=== PATIENT | male | born 1945 | race Caucasian/White ===

== ENCOUNTER 2019-05-25 08:14 | Inpatient (IN) | payer MEDICARE, MEDICAID ==
[~2019-05-25] VITALS: Ht 180.3 cm; Wt 80.0 kg
[~2019-05-25 08:14] MED LIST: ADV50250 IH; ALB0.5UD IH; ALPR-624 PO; ASPI-1265 PO; CARCD120C PO; CHOL200035 PO; CLOP75TA35 PO; COL100C PO; CYAN500T63 PO; DIPH-423 PO; FERR325T28 PO; FISH OIL DR 1,1 EACH PO; KEN0.1O TP; LATA2.5D6 OP; LEVO500T2 PO; LISI-222 PO; METF500T PO; NITR0.4T51 SL; PANT40TA39 PO; ROSU40TA PO; TIOT18CA7 IH; TRAM50TA2 PO
[2019-05-25] MEDS ORDERED: methylPREDNISolone sod succ 125mg/2ml vial IV ONE (08:25)
[2019-05-25] MEDS ORDERED: ipratropium/albuterol 3ml nebule NEB ONE (08:25)
[2019-05-25 08:54] LABS: PARTIAL THROMBOPLASTIN TIME 24 SECONDS (22-32)
[2019-05-25 09:09] LABS: ALANINE AMINOTRANSFERASE 17 U/L (12-78); ALBUMIN 3.4 G/DL (3.4-5.0); ALBUMIN/GLOBULIN RATIO 0.8 (1.1-1.5); ALKALINE PHOSPHATASE 62 IU/L (46-116); ANION GAP 9 (8-16); ASPARTATE AMINO TRANSFERASE 16 U/L (10-37); BILIRUBIN,TOTAL 0.4 MG/DL (0.1-1.0); BLOOD UREA NITROGEN 25 MG/DL (7-18); BUN/CREATININE RATIO 20.5 (5.4-32.0); CALCIUM 10.7 MG/DL (8.5-10.1); CHLORIDE 97 MMOL/L (99-107); CREATININE 1.22 MG/DL (0.60-1.10); GLUCOSE 120 MG/DL (70-104); POTASSIUM 4.7 MMOL/L (3.5-5.1); SODIUM 135 MMOL/L (135-145); TOTAL CARBON DIOXIDE 28.9 MMOL/L (24-32); TOTAL PROTEIN 7.9 G/DL (6.4-8.2); eGFR 58 ML/MIN
[2019-05-25] MEDS ORDERED: aspirin 81mg tab.chew PO ONE (09:15)
[2019-05-25 10:29] LABS: BASOPHILS % (AUTO) 0.3 % (0-1); EOSINOPHILS # (AUTO) 0.3 X10'3 (0-0.9); EOSINOPHILS % (AUTO) 2.2 % (0-6); HEMATOCRIT 39.7 % (42.0-52.0); HEMOGLOBIN 13.1 g/dl (14.0-17.9); LYMPHOCYTES # (AUTO) 0.6 X10'3 (1.1-4.8); MEAN CORPUSCULAR HEMOGLOBIN 28.6 PG (27.0-31.0); MEAN CORPUSCULAR VOLUME 86.7 FL (78-98); MEAN PLATELET VOLUME 8.8 FL (7.4-10.4); MONOCYTES # (AUTO) 0.7 X10'3 (0-0.9); MONOCYTES % (AUTO) 5.4 % (2-12); NEUTROPHILS # (AUTO) 10.4 X10'3 (1.8-7.7); NEUTROPHILS % (AUTO) 87.1 % (42-75); PLATELET COUNT 178 X10'3 (140-440); RED BLOOD COUNT 4.58 X10'6 (4.70-6.10); RED CELL DISTRIBUTION WIDTH 14.9 % (11.5-14.5)
[2019-05-25] MEDS ORDERED: ALBU18HF2 INH (10:50)
[2019-05-25] MEDS ORDERED: ALB0.5UD IH (10:54)
[2019-05-25] MEDS ORDERED: iohexol 300mg/ml 100ml inj. ONE (10:54)
--- NOTE | 2019-05-25 10:59 | NUR ---
pt out to ct via wheelchair with final inspector shuttle
[2019-05-25 11:01] LABS: ABG BASE EXCESS 0.1 mmol/L (-2.0-3.0); ABG OXYGEN SATURATION 93.5 % (95-98); ABG PCO2 (T) 41.6 mmHg (35.0-45.0); ABG PH (T) 7.397 (7.350-7.450); ALLEN'S TEST Positive; FCOHb 1.2 % (0.5-1.5); FLOW 2 L/min; FMetHb 0.2 % (0.3-1.12); FO2Hb 92.2 % (94-100); RESPIRATORY RATE (OBSERVED) 17 b/min; TOTAL HEMOGLOBIN 14.7 G/dl (14.0-17.9)
[2019-05-25] MEDS: MESSAGE TO NURSING PO NR (12:06)
--- NOTE | 2019-05-25 13:10 | NUR ---
SPOKE WITH DR ELIAS ABOUT POC FOR PT. STATED NOT SURE IF PT WILL BE ADMITTED AT THIS TIME AND WILL SPEAK TO PT. PT SLEEPING IN BED NO DISTRESS NOTED.
[2019-05-25] MEDS ORDERED: ADV50500 IH (13:58)
--- NOTE | 2019-05-25 13:59 | NUR ---
MEDICAL RECORDS RELEASE FAXED TO THE [facility]
[2019-05-25] MEDS ORDERED: FLO0.4C PO (14:04)
[2019-05-25] MEDS ORDERED: MEGE40TA27 PO (14:04)
[2019-05-25] MEDS ORDERED: [UNRECOGNIZED DRUG - CODE] TP (14:09)
[2019-05-25] MEDS ORDERED: BRIN8DRO LEFTEYE (15:35)
[2019-05-25] MEDS ORDERED: CHOL100046 PO (16:00)
[2019-05-25] MEDS ORDERED: SILD100T PO (16:06)
[2019-05-25] MEDS ORDERED: TEMA15CA5 PO (16:06)
[2019-05-25] MEDS ORDERED: PANT-47 PO (16:06)
[2019-05-25] MEDS ORDERED: DILT-36 PO (16:06)
[2019-05-25] MEDS ORDERED: enoxaparin 80mg/0.8ml syringe SUBCUT ONE (17:30)
[2019-05-25] MEDS ORDERED: enoxaparin 100mg/ml syringe SUBCUT ONE (17:30)
[2019-05-25] MEDS ORDERED: levoFLOXACIN-Levaquin 750MG/D5 150 ML IV STA (17:45)
[2019-05-25] MEDS ORDERED: magnesium Cl slow-release 64mg tablet PO PRN (17:55)
[2019-05-25] MEDS ORDERED: ondansetron/PF 4mg/2ml inj IV PRN (17:55)
[2019-05-25] MEDS ORDERED: magnesium 2GM in 50ml NS 50 ML IV PRN (17:55)
[2019-05-25] MEDS ORDERED: ipratropium/albuterol 3ml nebule NEB PRN (17:55)
[2019-05-25] MEDS ORDERED: HYDROcodone/acetaminophen 10/325mg tab PO PRN (17:55)
[2019-05-25] MEDS ORDERED: acetaminophen 325mg tablet PO PRN ×2 (17:55)
[2019-05-25] MEDS ORDERED: potassium Cl 20 mEq SR tablet PO PRN ×2 (17:55)
[2019-05-25] MEDS ORDERED: HYDROcodone/acetaminophen 5mg/325mg tablet PO PRN (17:55)
[2019-05-25] MEDS ORDERED: potassium CL 10mEq/100ml bag 100 ML IV PRN ×2 (17:55)
[2019-05-25] MEDS ORDERED: magnesium hydroxide 30ml (MOM) UD suspension PO PRN (17:55)
[2019-05-25] MEDS ORDERED: magnesium 4gm in 100ml NS 100 ML IV PRN (17:55)
[2019-05-25] MEDS ORDERED: temazepam 15mg capsule PO PRN ×2 (18:00→21:00)
[2019-05-25] MEDS ORDERED: dextrose ORAL solution 15 GM/59 ML bottle PO PRN ×2 (18:05)
[2019-05-25] MEDS ORDERED: MESSAGE TO PHARMACY PO ONE (18:05)
[2019-05-25] MEDS ORDERED: glucagon, human recombinant 1mg kit SUBCUT PRN (18:05)
[2019-05-25] MEDS ORDERED: dextrose 50%-water 50ml dispensing syringe IV PRN ×2 (18:05)
--- NOTE | 2019-05-25 18:06 | NUR ---
brother jose [phone]
[2019-05-25] MEDS: normal saline 1000ml 1,000 ML IV SCH (18:10)
[2019-05-25] MEDS: insulin glargine (Lantus) pen - multi-dose SQ SCH (21:00)
[2019-05-25] MEDS ORDERED: BRIMONID TART EACHEYE SCH (21:00)
[2019-05-25] MEDS ORDERED: BRINZOLAMIDE EACHEYE SCH (21:00)
[2019-05-25] MEDS: ipratropium/albuterol 3ml nebule NEB SCH ×2 (21:16→23:00)
[2019-05-25] MEDS: OPTH EACHEYE SCH (21:43)
[2019-05-25] MEDS: SIMBRINZA EACHEYE SCH (21:43)
[2019-05-25] MEDS: LATANOPROST EYE DROPS LEFTEYE SCH (21:44)
[2019-05-25] MEDS: methylPREDNISolone sod succ 125mg/2ml vial IV SCH (21:46)
[2019-05-26] MEDS: methylPREDNISolone sod succ 125mg/2ml vial IV SCH ×4 (02:11→20:23)
[2019-05-26] MEDS: normal saline 1000ml 1,000 ML IV SCH (05:19)
[2019-05-26 05:58] LABS: BASOPHILS % (AUTO) 0 % (0-1); EOSINOPHILS % (AUTO) 0 % (0-6); HEMATOCRIT 36.6 % (42.0-52.0); HEMOGLOBIN 12.2 g/dl (14.0-17.9); LYMPHOCYTES # (AUTO) 0.4 X10'3 (1.1-4.8); LYMPHOCYTES % (AUTO) 4.4 % (21-51); MEAN CORPUSCULAR HEMOGLOBIN 28.8 PG (27.0-31.0); MEAN CORPUSCULAR HGB CONC 33.4 g/dL (33.0-36.5); MEAN CORPUSCULAR VOLUME 86.3 FL (78-98); MEAN PLATELET VOLUME 8.7 FL (7.4-10.4); MONOCYTES # (AUTO) 0.3 X10'3 (0-0.9); MONOCYTES % (AUTO) 2.7 % (2-12); NEUTROPHILS # (AUTO) 9.1 X10'3 (1.8-7.7); NEUTROPHILS % (AUTO) 92.9 % (42-75); PLATELET COUNT 195 X10'3 (140-440); RED BLOOD COUNT 4.24 X10'6 (4.70-6.10); RED CELL DISTRIBUTION WIDTH 14.5 % (11.5-14.5); WHITE BLOOD COUNT 9.8 X10'3 (4.5-11.0)
--- NOTE | 2019-05-26 06:12 | NUR ---
Patient in room NAS[facility] 357. I have received report from JENNIE Truong and had the opportunity to ask questions and assume patient care.
[2019-05-26 06:21] LABS: ALANINE AMINOTRANSFERASE 21 U/L (12-78); ALBUMIN 2.7 G/DL (3.4-5.0); ALBUMIN/GLOBULIN RATIO 0.7 (1.1-1.5); ALKALINE PHOSPHATASE 55 IU/L (46-116); ANION GAP 9 (8-16); ASPARTATE AMINO TRANSFERASE 15 U/L (10-37); BILIRUBIN,TOTAL 0.2 MG/DL (0.1-1.0); BLOOD UREA NITROGEN 31 MG/DL (7-18); BUN/CREATININE RATIO 31.3 (5.4-32.0); CHLORIDE 101 MMOL/L (99-107); CREATININE 0.99 MG/DL (0.60-1.10); GLUCOSE 179 MG/DL (70-104); MAGNESIUM 2.1 MG/DL (1.5-2.4); PHOSPHORUS 4.5 MG/DL (2.3-4.5); POTASSIUM 4.7 MMOL/L (3.5-5.1); SODIUM 137 MMOL/L (135-145); TOTAL CARBON DIOXIDE 27.3 MMOL/L (24-32); TOTAL PROTEIN 6.8 G/DL (6.4-8.2); eGFR 74 ML/MIN
--- NOTE | 2019-05-26 06:39 | NUR ---
Problems reprioritized. Patient report given, questions answered & plan of care reviewed with Ana SCHNEIDER.
[2019-05-26 07:18] VITALS: BP 107/56
[2019-05-26] MEDS: K and/or MAG REPLACEMENT MC SCH (07:44)
[2019-05-26] MEDS: OPTH EACHEYE SCH ×2 (07:44→13:00)
[2019-05-26] MEDS: SIMBRINZA EACHEYE SCH ×2 (07:44→13:00)
[2019-05-26] MEDS: diltiazem CD 180mg cap (once-daily) PO SCH (07:45)
[2019-05-26] MEDS: aspirin 81mg tab.chew PO SCH (07:45)
[2019-05-26] MEDS: docusate sod 100mg capsule PO SCH (07:45)
[2019-05-26] MEDS: tamsulosin 0.4mg capsule PO SCH (07:46)
[2019-05-26] MEDS: MESSAGE TO NURSING PO NR (07:47)
[2019-05-26] MEDS: pantoprazole 40mg Tablet.DR PO SCH (07:47)
[2019-05-26] MEDS: levoFLOXACIN-Levaquin 750MG/D5 150 ML IV SCH (07:48)
[2019-05-26] MEDS: ipratropium/albuterol 3ml nebule NEB SCH ×5 (08:23→23:00)
[2019-05-26 11:31] VITALS: BP 123/62
--- NOTE | 2019-05-26 11:43 | NUR ---
DM consult: Patient's A1c is 6.1; DM education not warranted at this time. Will continue to follow. Addendum: 05/26/19 at [address] Amended: Links added.
[2019-05-26] MEDS: insulin Lispro (HumaLOG) vial - multi-dose SQ SCH ×3 (13:55→21:28)
[2019-05-26] MEDS: mag hydrox/Alum hydrox/simeth 30ml oral suspension PO PRN ×2 (13:57→18:34)
--- NOTE | 2019-05-26 18:00 | NUR ---
Problems reprioritized. Patient report given, questions answered & plan of care reviewed with JENNIE Drake.
[2019-05-26 19:00] VITALS: BP 140/57
[2019-05-26] MEDS: lactobacillus rhamnosus 10,000 MMU CELLS/CAPSULE PO SCH (20:23)
--- NOTE | 2019-05-26 20:40 | NUR ---
Received report from Franny SCHNEIDER pt is awake and alert on 3.5L of O2 via NC, visitor at bedside, in no apparent distress, call light and items of freq use within reach.
[2019-05-26] MEDS: insulin glargine (Lantus) pen - multi-dose SQ SCH (21:30)
[2019-05-26] MEDS: LATANOPROST EYE DROPS LEFTEYE SCH (21:34)
[2019-05-27 00:19] VITALS: BP 118/58
[2019-05-27] MEDS: methylPREDNISolone sod succ 125mg/2ml vial IV SCH ×2 (02:45→09:21)
--- NOTE | 2019-05-27 06:00 | NUR ---
Patient in room NASIM 357. I have received report from CRUZ SCHNEIDER and had the opportunity to ask questions and assume patient care.
--- NOTE | 2019-05-27 06:00 | NUR ---
Patient in room NASIM 357. I have received report from CRUZ SCHNEIDER and had the opportunity to ask questions and assume patient care.
[2019-05-27 06:18] LABS: BASOPHILS % (AUTO) 0 % (0-1); EOSINOPHILS % (AUTO) 0 % (0-6); HEMATOCRIT 36.5 % (42.0-52.0); HEMOGLOBIN 12.2 g/dl (14.0-17.9); LYMPHOCYTES # (AUTO) 0.5 X10'3 (1.1-4.8); LYMPHOCYTES % (AUTO) 3.5 % (21-51); MEAN CORPUSCULAR HEMOGLOBIN 28.4 PG (27.0-31.0); MEAN CORPUSCULAR HGB CONC 33.5 g/dL (33.0-36.5); MEAN CORPUSCULAR VOLUME 84.9 FL (78-98); MEAN PLATELET VOLUME 8.5 FL (7.4-10.4); MONOCYTES # (AUTO) 0.4 X10'3 (0-0.9); MONOCYTES % (AUTO) 3.1 % (2-12); NEUTROPHILS # (AUTO) 12.5 X10'3 (1.8-7.7); NEUTROPHILS % (AUTO) 93.4 % (42-75); PLATELET COUNT 238 X10'3 (140-440); RED CELL DISTRIBUTION WIDTH 14.8 % (11.5-14.5); WHITE BLOOD COUNT 13.4 X10'3 (4.5-11.0)
--- NOTE | 2019-05-27 06:25 | NUR ---
gave report to Trixie SCHNEIDER pt is resting on 2.5L of O2 via NC, in no apparent distress, breaths even and unlabored, call light and items of freq use within reach.
[2019-05-27 06:27] LABS: ALANINE AMINOTRANSFERASE 30 U/L (12-78); ALBUMIN 2.9 G/DL (3.4-5.0); ALBUMIN/GLOBULIN RATIO 0.7 (1.1-1.5); ALKALINE PHOSPHATASE 56 IU/L (46-116); ANION GAP 9 (8-16); ASPARTATE AMINO TRANSFERASE 18 U/L (10-37); BILIRUBIN,TOTAL 0.2 MG/DL (0.1-1.0); BLOOD UREA NITROGEN 27 MG/DL (7-18); BUN/CREATININE RATIO 28.1 (5.4-32.0); CALCIUM 9.7 MG/DL (8.5-10.1); CHLORIDE 105 MMOL/L (99-107); CREATININE 0.96 MG/DL (0.60-1.10); GLUCOSE 184 MG/DL (70-104); MAGNESIUM 2.4 MG/DL (1.5-2.4); PHOSPHORUS 3.1 MG/DL (2.3-4.5); POTASSIUM 4.7 MMOL/L (3.5-5.1); SODIUM 141 MMOL/L (135-145); TOTAL CARBON DIOXIDE 26.7 MMOL/L (24-32); eGFR 77 ML/MIN
[2019-05-27 07:00] VITALS: BP_SYST 116; BP_SYST 142; BP_DIAS 60; BP_DIAS 64
[2019-05-27] MEDS: ipratropium/albuterol 3ml nebule NEB SCH ×5 (07:31→23:00)
[2019-05-27] MEDS: K and/or MAG REPLACEMENT MC SCH (08:00)
[2019-05-27] MEDS: OPTH EACHEYE SCH (08:00)
[2019-05-27] MEDS: SIMBRINZA EACHEYE SCH (08:00)
--- NOTE | 2019-05-27 09:01 | NUR ---
pt just finished his meal. went to correct insulin and xray is here to get him.
[2019-05-27] MEDS: levoFLOXACIN-Levaquin 750MG/D5 150 ML IV SCH (09:19)
[2019-05-27] MEDS: pantoprazole 40mg Tablet.DR PO SCH (09:20)
[2019-05-27] MEDS: diltiazem CD 180mg cap (once-daily) PO SCH (09:20)
[2019-05-27] MEDS: aspirin 81mg tab.chew PO SCH (09:20)
[2019-05-27] MEDS: docusate sod 100mg capsule PO SCH (09:21)
[2019-05-27] MEDS: lactobacillus rhamnosus 10,000 MMU CELLS/CAPSULE PO SCH ×2 (09:21→20:54)
[2019-05-27] MEDS: tamsulosin 0.4mg capsule PO SCH (09:21)
[2019-05-27] MEDS: insulin Lispro (HumaLOG) vial - multi-dose SQ SCH ×3 (09:33→18:18)
[2019-05-27] MEDS: ALPRAZolam 0.5mg tablet PO PRN ×2 (09:37→20:54)
[2019-05-27] MEDS: MESSAGE TO NURSING PO NR (10:00)
[2019-05-27 11:00] VITALS: BP 118/65
--- NOTE | 2019-05-27 18:05 | NUR ---
Received report from Trixie SCHNEIDER pt is awake and alert on 2L of o2 via NC in no apparent distress, call light and items of freq use within reach, pt finished eating dinner
--- NOTE | 2019-05-27 18:11 | NUR ---
GAVE REPORT TO CRUZ SCHNEIDER
[2019-05-27 19:00] VITALS: BP 124/69
[2019-05-27] MEDS: LATANOPROST EYE DROPS LEFTEYE SCH (20:54)
[2019-05-27] MEDS: insulin glargine (Lantus) pen - multi-dose SQ SCH (20:59)
[2019-05-28 00:40] VITALS: BP 125/59
[2019-05-28 06:15] LABS: BASOPHILS % (AUTO) 0 % (0-1); EOSINOPHILS % (AUTO) 0 % (0-6); HEMATOCRIT 38.7 % (42.0-52.0); HEMOGLOBIN 12.8 g/dl (14.0-17.9); LYMPHOCYTES # (AUTO) 0.5 X10'3 (1.1-4.8); LYMPHOCYTES % (AUTO) 5.5 % (21-51); MEAN CORPUSCULAR HEMOGLOBIN 28.2 PG (27.0-31.0); MEAN CORPUSCULAR VOLUME 85.6 FL (78-98); MEAN PLATELET VOLUME 8.3 FL (7.4-10.4); MONOCYTES # (AUTO) 0.7 X10'3 (0-0.9); MONOCYTES % (AUTO) 7.3 % (2-12); NEUTROPHILS # (AUTO) 8.8 X10'3 (1.8-7.7); NEUTROPHILS % (AUTO) 87.2 % (42-75); PLATELET COUNT 223 X10'3 (140-440); RED BLOOD COUNT 4.52 X10'6 (4.70-6.10); RED CELL DISTRIBUTION WIDTH 14.7 % (11.5-14.5); WHITE BLOOD COUNT 10.1 X10'3 (4.5-11.0)
[2019-05-28 06:21] LABS: GLUCOSE 150 MG/DL (70-104); POTASSIUM 4.9 MMOL/L (3.5-5.1); SODIUM 141 MMOL/L (135-145)
[2019-05-28 06:22] LABS: ALANINE AMINOTRANSFERASE 27 U/L (12-78); ALBUMIN 2.8 G/DL (3.4-5.0); ALBUMIN/GLOBULIN RATIO 0.8 (1.1-1.5); ALKALINE PHOSPHATASE 51 IU/L (46-116); ANION GAP 4 (8-16); ASPARTATE AMINO TRANSFERASE 13 U/L (10-37); BILIRUBIN,TOTAL 0.1 MG/DL (0.1-1.0); BLOOD UREA NITROGEN 25 MG/DL (7-18); BUN/CREATININE RATIO 35.7 (5.4-32.0); CALCIUM 8.8 MG/DL (8.5-10.1); CHLORIDE 107 MMOL/L (99-107); MAGNESIUM 2.3 MG/DL (1.5-2.4); PHOSPHORUS 2.9 MG/DL (2.3-4.5); TOTAL CARBON DIOXIDE 29.9 MMOL/L (24-32); TOTAL PROTEIN 6.5 G/DL (6.4-8.2); eGFR > 90 ML/MIN
--- NOTE | 2019-05-28 06:32 | NUR ---
Gave report to Trixie SCHNEIDER pt is resting on 2L of O2 via NC in no apparent distress, call light and items of freq use within reach.
--- NOTE | 2019-05-28 06:45 | NUR ---
Patient in room NASIM 357. I have received report from CRUZ SCHNEIDER and had the opportunity to ask questions and assume patient care.
[2019-05-28 07:00] VITALS: BP 147/98
[2019-05-28] MEDS: ipratropium/albuterol 3ml nebule NEB SCH ×2 (07:11→11:07)
[2019-05-28 07:26] VITALS: BP 120/75
[2019-05-28] MEDS: SIMBRINZA EACHEYE SCH (08:00)
[2019-05-28] MEDS: K and/or MAG REPLACEMENT MC SCH (08:00)
[2019-05-28] MEDS: OPTH EACHEYE SCH (08:00)
[2019-05-28] MEDS: diltiazem CD 180mg cap (once-daily) PO SCH (09:18)
[2019-05-28] MEDS: aspirin 81mg tab.chew PO SCH (09:18)
[2019-05-28] MEDS: tamsulosin 0.4mg capsule PO SCH (09:18)
[2019-05-28] MEDS: lactobacillus rhamnosus 10,000 MMU CELLS/CAPSULE PO SCH (09:18)
[2019-05-28] MEDS: levoFLOXACIN-Levaquin 750MG/D5 150 ML IV SCH (09:18)
[2019-05-28] MEDS: pantoprazole 40mg Tablet.DR PO SCH (09:18)
[2019-05-28] MEDS: docusate sod 100mg capsule PO SCH (09:18)
[2019-05-28] MEDS: insulin Lispro (HumaLOG) vial - multi-dose SQ SCH (09:27)
[2019-05-28] MEDS: ALPRAZolam 0.5mg tablet PO PRN (09:28)
[2019-05-28 11:00] VITALS: BP 110/60
[2019-05-28] MEDS ORDERED: PRED20TA PO (12:44)
[2019-05-28] MEDS ORDERED: LEVO750T21 PO (12:44)
[2019-05-28] MEDS ORDERED: predniSONE 20 mg tablet PO SCH (15:00)
== END 2019-05-28 13:57 | disposition home or self-care (01) | DRG 205 ==
LOC: ER 08:14 → SUR 3N 20:41
PROVIDERS: ADMIT Family Medicine; ATTEND Family Medicine
DX: J98.19 Other pulmonary collapse (principal); J18.1 Lobar pneumonia, unspecified organism; J96.21 Acute and chronic respiratory failure with hypoxia; N17.9 Acute kidney failure, unspecified; E11.22 Type 2 diabetes mellitus with diabetic chronic kidney disease; E78.5 Hyperlipidemia, unspecified; I12.9 Hypertensive chronic kidney disease with stage 1 through stage 4 chronic kidney disease, or unspecified chronic kidney disease; I25.10 Atherosclerotic heart disease of native coronary artery without angina pectoris; J43.9 Emphysema, unspecified; K21.9 Gastro-esophageal reflux disease without esophagitis; N18.9 Chronic kidney disease, unspecified; N40.0 Benign prostatic hyperplasia without lower urinary tract symptoms; T38.0X5A Adverse effect of glucocorticoids and synthetic analogues, initial encounter; X58.XXXA Exposure to other specified factors, initial encounter; Z85.118 Personal history of other malignant neoplasm of bronchus and lung; Z85.46 Personal history of malignant neoplasm of prostate; Z86.73 Personal history of transient ischemic attack (TIA), and cerebral infarction without residual deficits; Z99.81 Dependence on supplemental oxygen; Z90.49 Acquired absence of other specified parts of digestive tract; Z88.8 Allergy status to other drugs, medicaments and biological substances; Z88.1 Allergy status to other antibiotic agents; Y93.89 Activity, other specified; Y92.89 Other specified places as the place of occurrence of the external cause; Y99.8 Other external cause status; T17.990A Other foreign object in respiratory tract, part unspecified in causing asphyxiation, initial encounter
CPT/HCPCS: 36415; 36600; 71045; 71046; 71260; 80053; 82803; 82948; 83036; 83605; 83735; 83880; 84100; 84484; 85018; 85025; 85610; 85730; 87040; 87081; 93005; 93306; 94640; 94760; 97116; 97161; 97530; 99285; G0378; J1650; J1815; J1956; J2930; J7030; Q9967

== ENCOUNTER 2019-06-12 11:53 | Inpatient (IN) | payer MEDICARE, MEDICAID ==
[~2019-06-12] VITALS: Ht 365.8 cm; Wt 68.2 kg
[~2019-06-12 11:53] MED LIST changes: +ALBU18HF2 INH; +BRIN8DRO LEFTEYE; -CARCD120C PO; +CHOL100046 PO; -CHOL200035 PO; -CLOP75TA35 PO; +DILT-36 PO; -FERR325T28 PO; -FISH OIL DR 1,1 EACH PO; +FLO0.4C PO; -KEN0.1O TP; -LATA2.5D6 OP; -LEVO500T2 PO; -LISI-222 PO; +MEGE40TA27 PO; -NITR0.4T51 SL; +PANT-47 PO; -PANT40TA39 PO; +PRED20TA PO; -ROSU40TA PO; +SILD100T PO; +TEMA15CA5 PO; -TRAM50TA2 PO; +[UNRECOGNIZED DRUG - CODE] TP
[2019-06-12 14:04] LABS: BASOPHILS # (AUTO) 0.1 X10'3 (0-0.2); EOSINOPHILS # (AUTO) 0.2 X10'3 (0-0.9); EOSINOPHILS % (AUTO) 2.1 % (0-6); HEMATOCRIT 38.1 % (42.0-52.0); HEMOGLOBIN 12.6 g/dl (14.0-17.9); LYMPHOCYTES # (AUTO) 1.3 X10'3 (1.1-4.8); LYMPHOCYTES % (AUTO) 14.6 % (21-51); MEAN CORPUSCULAR HEMOGLOBIN 28.1 PG (27.0-31.0); MEAN CORPUSCULAR HGB CONC 33.2 g/dL (33.0-36.5); MEAN CORPUSCULAR VOLUME 84.6 FL (78-98); MONOCYTES # (AUTO) 0.5 X10'3 (0-0.9); MONOCYTES % (AUTO) 6.2 % (2-12); NEUTROPHILS # (AUTO) 6.7 X10'3 (1.8-7.7); NEUTROPHILS % (AUTO) 76.1 % (42-75); PLATELET COUNT 272 X10'3 (140-440); RED CELL DISTRIBUTION WIDTH 14.4 % (11.5-14.5); WHITE BLOOD COUNT 8.8 X10'3 (4.5-11.0)
[2019-06-12 14:26] LABS: ALANINE AMINOTRANSFERASE 29 U/L (12-78); ALBUMIN 3.3 G/DL (3.4-5.0); ALBUMIN/GLOBULIN RATIO 0.8 (1.1-1.5); ALKALINE PHOSPHATASE 60 IU/L (46-116); ANION GAP 8 (8-16); ASPARTATE AMINO TRANSFERASE 25 U/L (10-37); BILIRUBIN,TOTAL 0.3 MG/DL (0.1-1.0); BLOOD UREA NITROGEN 11 MG/DL (7-18); BUN/CREATININE RATIO 10.5 (5.4-32.0); CALCIUM 9.5 MG/DL (8.5-10.1); CHLORIDE 102 MMOL/L (99-107); CREATININE 1.05 MG/DL (0.60-1.10); GLUCOSE 95 MG/DL (70-104); POTASSIUM 4.4 MMOL/L (3.5-5.1); SODIUM 138 MMOL/L (135-145); TOTAL CARBON DIOXIDE 27.6 MMOL/L (24-32); TOTAL PROTEIN 7.3 G/DL (6.4-8.2); eGFR 69 ML/MIN
--- NOTE | 2019-06-12 14:32 | NUR ---
VAS TECH AT BEDSIDE.
[2019-06-12] MEDS ORDERED: enoxaparin 100mg/ml syringe SUBCUT ONE (15:10)
[2019-06-12] MEDS ORDERED: ROSU20TA31 PO (16:14)
[2019-06-12] MEDS ORDERED: XAL0.005OS OP (16:14)
[2019-06-12] MEDS ORDERED: BENZ-49 PO (16:14)
[2019-06-12] MEDS ORDERED: NITR0.4T48 SL (16:21)
[2019-06-12] MEDS ORDERED: HYDROcodone/acetaminophen 5mg/325mg tablet PO PRN (16:25)
[2019-06-12] MEDS ORDERED: morphine 2 MG/ML inj. syringe IV PRN (16:25)
[2019-06-12] MEDS ORDERED: acetaminophen 325mg tablet PO PRN (16:25)
[2019-06-12] MEDS ORDERED: ondansetron/PF 4mg/2ml inj IV PRN (16:25)
[2019-06-12] MEDS ORDERED: mag hydrox/Alum hydrox/simeth 30ml oral suspension PO PRN (16:25)
[2019-06-12] MEDS ORDERED: magnesium hydroxide 30ml (MOM) UD suspension PO PRN (16:25)
[2019-06-12] MEDS ORDERED: ALBUTEROL SULFATE IH PRN (17:00)
[2019-06-12] MEDS ORDERED: ALPRAZolam 0.5mg tablet PO PRN (17:00)
[2019-06-12] MEDS ORDERED: temazepam 15mg capsule PO PRN (17:00)
[2019-06-12] MEDS: EYE LEFTEYE SCH ×2 (17:10→21:00)
[2019-06-12] MEDS: SIMBRINZA LEFTEYE SCH ×2 (17:10→21:00)
[2019-06-12] MEDS ORDERED: MEGESTROL ACETATE 40 MG PO SCH (17:15)
[2019-06-12 18:00] VITALS: BP 112/68
--- NOTE | 2019-06-12 19:08 | NUR ---
1800: I received report ovidio buenrostro, ED RN. patient arrived on unit @ 1825 via gurney, nurse transported, family and belongings accompanied patient. Patietn walked to bed and s in no apparent distress.
[2019-06-12] MEDS: docusate sod 100mg capsule PO SCH (20:02)
[2019-06-12] MEDS: benzonatate 100mg capsule PO SCH (20:02)
[2019-06-12] MEDS: enoxaparin 30mg/0.3ml syringe SUBCUT SCH (20:03)
[2019-06-12] MEDS: enoxaparin 40mg/0.4ml syringe SQ SCH (20:04)
[2019-06-12] MEDS: budesonide 0.5mg/2ml UD nebule IH SCH (20:07)
[2019-06-12] MEDS: albuterol 2.5 MG/3 ML nebule NEB PRN (20:08)
[2019-06-13] VITALS: BP 126/65
--- NOTE | 2019-06-13 01:02 | NUR ---
Thrombus in the femoral, popliteal, and tibial veins of the right lower extremity, per venous US. Tender to touch on lower calf, warm to touch and some swelling. Addendum: 06/13/19 at 0109 by Bayron Mazariegos RN Amended: Links added.
[2019-06-13 01:54] VITALS: BP 112/68
[2019-06-13 05:37] LABS: BASOPHILS # (AUTO) 0.1 X10'3 (0-0.2); BASOPHILS % (AUTO) 0.9 % (0-1); EOSINOPHILS # (AUTO) 0.3 X10'3 (0-0.9); EOSINOPHILS % (AUTO) 4.5 % (0-6); HEMATOCRIT 34.9 % (42.0-52.0); HEMOGLOBIN 11.7 g/dl (14.0-17.9); LYMPHOCYTES # (AUTO) 1.6 X10'3 (1.1-4.8); LYMPHOCYTES % (AUTO) 23.6 % (21-51); MEAN CORPUSCULAR HEMOGLOBIN 28.4 PG (27.0-31.0); MEAN CORPUSCULAR HGB CONC 33.5 g/dL (33.0-36.5); MEAN CORPUSCULAR VOLUME 84.6 FL (78-98); MEAN PLATELET VOLUME 7.9 FL (7.4-10.4); MONOCYTES # (AUTO) 0.6 X10'3 (0-0.9); MONOCYTES % (AUTO) 8.4 % (2-12); NEUTROPHILS # (AUTO) 4.1 X10'3 (1.8-7.7); NEUTROPHILS % (AUTO) 62.6 % (42-75); PLATELET COUNT 254 X10'3 (140-440); RED BLOOD COUNT 4.13 X10'6 (4.70-6.10); RED CELL DISTRIBUTION WIDTH 14.8 % (11.5-14.5); WHITE BLOOD COUNT 6.6 X10'3 (4.5-11.0)
[2019-06-13 05:50] LABS: ANION GAP 7 (8-16); BLOOD UREA NITROGEN 12 MG/DL (7-18); BUN/CREATININE RATIO 13.2 (5.4-32.0); CALCIUM 9.6 MG/DL (8.5-10.1); CHLORIDE 103 MMOL/L (99-107); CREATININE 0.91 MG/DL (0.60-1.10); GLUCOSE 88 MG/DL (70-104); POTASSIUM 4.3 MMOL/L (3.5-5.1); SODIUM 139 MMOL/L (135-145); TOTAL CARBON DIOXIDE 29.1 MMOL/L (24-32); eGFR 82 ML/MIN
--- NOTE | 2019-06-13 06:26 | NUR ---
Problems reprioritized. Patient report given, questions answered & plan of care reviewed with JENNIE Stroud.
[2019-06-13 07:00] VITALS: BP 109/83
[2019-06-13] MEDS: megestrol acetate 20mg tablet PO SCH ×2 (07:00→16:36)
[2019-06-13] MEDS: vitamin D (cholecalciferol) 1,000 unit tablet PO SCH (07:30)
[2019-06-13] MEDS: atorvastatin 20mg tablet PO SCH (07:31)
[2019-06-13] MEDS: tamsulosin 0.4mg capsule PO SCH (07:31)
[2019-06-13] MEDS: cyanocobalamin 500mcg tablet PO SCH (07:31)
[2019-06-13] MEDS: pantoprazole 40mg Tablet.DR PO SCH (07:31)
[2019-06-13] MEDS: enoxaparin 40mg/0.4ml syringe SQ SCH ×2 (07:32→19:35)
[2019-06-13] MEDS: enoxaparin 30mg/0.3ml syringe SUBCUT SCH ×2 (07:32→19:34)
[2019-06-13] MEDS: diltiazem CD 180mg cap (once-daily) PO SCH (07:32)
[2019-06-13] MEDS: docusate sod 100mg capsule PO SCH ×2 (07:32→19:33)
[2019-06-13] MEDS: benzonatate 100mg capsule PO SCH ×2 (07:34→19:33)
[2019-06-13] MEDS: EYE LEFTEYE SCH ×4 (07:40→13:30)
[2019-06-13] MEDS: SIMBRINZA LEFTEYE SCH ×4 (07:40→13:30)
[2019-06-13] MEDS: budesonide 0.5mg/2ml UD nebule IH SCH ×2 (08:11→19:11)
[2019-06-13] MEDS: albuterol 2.5 MG/3 ML nebule NEB PRN ×2 (08:11→19:11)
[2019-06-13 11:23] VITALS: BP 117/73
--- NOTE | 2019-06-13 18:25 | NUR ---
Patient in room NASIM 344. I have received report from JENNIE Stroud and had the opportunity to ask questions and assume patient care.
--- NOTE | 2019-06-13 18:25 | NUR ---
Problems reprioritized. Patient report given, questions answered & plan of care reviewed with JENNIE Haney.
[2019-06-13 20:00] VITALS: BP 130/86
[2019-06-13] MEDS ORDERED: ALPRAZolam 0.5mg tablet PO PRN (20:50)
[2019-06-13] MEDS ORDERED: latanoprost 0.005% 2.5ml ophthalmic drops LEFTEYE SCH (21:00)
[2019-06-14] VITALS: BP 131/68
[2019-06-14 04:50] LABS: BASOPHILS % (AUTO) 0.8 % (0-1); EOSINOPHILS # (AUTO) 0.2 X10'3 (0-0.9); EOSINOPHILS % (AUTO) 3.7 % (0-6); HEMATOCRIT 37.2 % (42.0-52.0); HEMOGLOBIN 12.3 g/dl (14.0-17.9); LYMPHOCYTES # (AUTO) 1.2 X10'3 (1.1-4.8); LYMPHOCYTES % (AUTO) 21.1 % (21-51); MEAN CORPUSCULAR HEMOGLOBIN 28.1 PG (27.0-31.0); MEAN CORPUSCULAR HGB CONC 33.1 g/dL (33.0-36.5); MEAN CORPUSCULAR VOLUME 84.9 FL (78-98); MEAN PLATELET VOLUME 7.9 FL (7.4-10.4); MONOCYTES # (AUTO) 0.5 X10'3 (0-0.9); MONOCYTES % (AUTO) 8.8 % (2-12); NEUTROPHILS # (AUTO) 3.7 X10'3 (1.8-7.7); NEUTROPHILS % (AUTO) 65.6 % (42-75); PLATELET COUNT 255 X10'3 (140-440); RED BLOOD COUNT 4.38 X10'6 (4.70-6.10); RED CELL DISTRIBUTION WIDTH 14.8 % (11.5-14.5); WHITE BLOOD COUNT 5.6 X10'3 (4.5-11.0)
[2019-06-14 04:53] LABS: ALBUMIN 3.1 G/DL (3.4-5.0); ANION GAP 5 (8-16); BLOOD UREA NITROGEN 8 MG/DL (7-18); BUN/CREATININE RATIO 9.4 (5.4-32.0); CALCIUM 9.1 MG/DL (8.5-10.1); CHLORIDE 105 MMOL/L (99-107); CREATININE 0.85 MG/DL (0.60-1.10); GLUCOSE 106 MG/DL (70-104); POTASSIUM 4.1 MMOL/L (3.5-5.1); SODIUM 141 MMOL/L (135-145); TOTAL CARBON DIOXIDE 30.8 MMOL/L (24-32); eGFR 88 ML/MIN
--- NOTE | 2019-06-14 06:38 | NUR ---
Problems reprioritized. Patient report given, questions answered & plan of care reviewed with JENNIE Curtis.
--- NOTE | 2019-06-14 06:40 | NUR ---
Patient in room NASIM 344. I have received report from Lyndon SCHNEIDER and had the opportunity to ask questions and assume patient care.
[2019-06-14] MEDS: budesonide 0.5mg/2ml UD nebule IH SCH (07:18)
[2019-06-14] MEDS: albuterol 2.5 MG/3 ML nebule NEB PRN ×2 (07:18→11:32)
[2019-06-14] MEDS: enoxaparin 40mg/0.4ml syringe SQ SCH (07:28)
[2019-06-14] MEDS: pantoprazole 40mg Tablet.DR PO SCH (07:30)
[2019-06-14] MEDS: tamsulosin 0.4mg capsule PO SCH (07:30)
[2019-06-14] MEDS: benzonatate 100mg capsule PO SCH (07:30)
[2019-06-14] MEDS: vitamin D (cholecalciferol) 1,000 unit tablet PO SCH (07:30)
[2019-06-14] MEDS: cyanocobalamin 500mcg tablet PO SCH (07:30)
[2019-06-14] MEDS: docusate sod 100mg capsule PO SCH (07:30)
[2019-06-14] MEDS: megestrol acetate 20mg tablet PO SCH (07:30)
[2019-06-14] MEDS: atorvastatin 20mg tablet PO SCH (07:30)
[2019-06-14] MEDS: EYE LEFTEYE SCH (07:37)
[2019-06-14] MEDS: SIMBRINZA LEFTEYE SCH (07:37)
[2019-06-14] MEDS: enoxaparin 30mg/0.3ml syringe SUBCUT SCH (08:03)
[2019-06-14 08:53] VITALS: BP 99/61
[2019-06-14 09:20] VITALS: BP 103/84
[2019-06-14] MEDS: diltiazem CD 180mg cap (once-daily) PO SCH (09:45)
[2019-06-14 10:50] VITALS: BP 108/63
[2019-06-14] MEDS ORDERED: APIX5TAB3 PO (11:33)
--- NOTE | 2019-06-14 11:45 | NUR ---
Discussed with [employer] Technician Katerin patient's brother concern about needing help at home, lives by himself, and that patient stated being weak. MARY Conklin said she will request home health nurse and PT for this patient
--- NOTE | 2019-06-14 12:01 | NUR ---
Patient talked to about him feeling very weak, Dr. Ferreiar wanted PT to see this patient first, PT paged to do it david
--- NOTE | 2019-06-14 13:38 | NUR ---
Patient seen by PT, physical therapist said patient able to walk fine. Dr. Ferreira aware. Discharge instructions given to patient, patient verbalized understanding of all instructions made. Peripheral IV catheter removed, tip intact. Patient's owns meds, the inhaler and eye drops returned to patient. Patient has his own portable oxygen at bedside to be use during transportation and at home. New prescription for Eliquis were called in to [facility] as per patient request. Instructed patient to ensure he has all his belongings before leaving. Patient awaiting for his brother to come back to his room and will be the one to give him a ride
== END 2019-06-14 14:01 | disposition home or self-care (01) | DRG 301 ==
LOC: ER 11:54 → ED HOLD 17:19 → EDBEDREQ 17:24 → CMPBEDREQ 18:06 → SUR 3N 18:23
PROVIDERS: ADMIT Family Medicine; ATTEND Family Medicine
DX: I82.411 Acute embolism and thrombosis of right femoral vein (principal); I82.431 Acute embolism and thrombosis of right popliteal vein; I82.441 Acute embolism and thrombosis of right tibial vein; E11.9 Type 2 diabetes mellitus without complications; E78.5 Hyperlipidemia, unspecified; I10 Essential (primary) hypertension; I25.10 Atherosclerotic heart disease of native coronary artery without angina pectoris; R21 Rash and other nonspecific skin eruption; J44.9 Chronic obstructive pulmonary disease, unspecified; K21.9 Gastro-esophageal reflux disease without esophagitis; Z86.73 Personal history of transient ischemic attack (TIA), and cerebral infarction without residual deficits; Z88.1 Allergy status to other antibiotic agents; Z88.8 Allergy status to other drugs, medicaments and biological substances; Z99.81 Dependence on supplemental oxygen
CPT/HCPCS: 36415; 80048; 80053; 82948; 84145; 85025; 87081; 93971; 94640; 94760; 99285; G0378; J1650; J7626

== ENCOUNTER 2020-02-13 15:30 | Inpatient (IN) | payer OTHER, MEDICARE, MEDICAID ==
[~2020-02-13] VITALS: Ht 185.4 cm; Wt 65.0 kg
[~2020-02-13 15:30] MED LIST changes: -ADV50250 IH; -ASPI-1265 PO; +BENZ-49 PO; +CYCL2DRO2 OP; +FLUT1BLS4 INH; +MEGE400O6 PO; -MEGE40TA27 PO; +MELA3TAB70 PO; -METF500T PO; +NITR0.4T48 SL; -PRED20TA PO; +PRED5DRO3 LEFTEYE; +ROSU20TA31 PO; -SILD100T PO; -TEMA15CA5 PO; -TIOT18CA7 IH; +XAL0.005OS OP; -[UNRECOGNIZED DRUG - CODE] TP
[2020-02-13] MEDS ORDERED: methylPREDNISolone sod succ 125mg/2ml vial IV ONE (15:45)
[2020-02-13] MEDS ORDERED: albuterol 1.25 MG/3 ML (1/2 strength) nebule NEB ONE (15:45)
[2020-02-13] MEDS ORDERED: normal saline 1000ML IV soln IV ONE (15:55)
[2020-02-13] MEDS ORDERED: ipratropium/albuterol 3ml nebule NEB ONE (16:05)
--- NOTE | 2020-02-13 16:15 | NUR ---
one liter of ns given. edgar colin canceled remaining 1.5 liters due to heart failure.
[2020-02-13 16:17] LABS: BASOPHILS # (AUTO) 0.1 X10'3 (0-0.2); BASOPHILS % (AUTO) 1.1 % (0-1); EOSINOPHILS # (AUTO) 0.4 X10'3 (0-0.9); EOSINOPHILS % (AUTO) 4.2 % (0-6); HEMATOCRIT 35.8 % (42.0-52.0); HEMOGLOBIN 11.6 g/dl (14.0-17.9); LYMPHOCYTES # (AUTO) 0.8 X10'3 (1.1-4.8); LYMPHOCYTES % (AUTO) 9.3 % (21-51); MEAN CORPUSCULAR HEMOGLOBIN 26.6 PG (27.0-31.0); MEAN CORPUSCULAR HGB CONC 32.3 g/dL (33.0-36.5); MEAN CORPUSCULAR VOLUME 82.2 FL (78-98); MEAN PLATELET VOLUME 8.4 FL (7.4-10.4); MONOCYTES # (AUTO) 0.6 X10'3 (0-0.9); MONOCYTES % (AUTO) 6.8 % (2-12); NEUTROPHILS # (AUTO) 6.6 X10'3 (1.8-7.7); NEUTROPHILS % (AUTO) 78.6 % (42-75); PLATELET COUNT 270 X10'3 (140-440); RED BLOOD COUNT 4.35 X10'6 (4.70-6.10); RED CELL DISTRIBUTION WIDTH 17.8 % (11.5-14.5); WHITE BLOOD COUNT 8.4 X10'3 (4.5-11.0)
[2020-02-13 16:27] LABS: ALANINE AMINOTRANSFERASE 16 U/L (12-78); ALBUMIN 3.6 G/DL (3.4-5.0); ALBUMIN/GLOBULIN RATIO 0.8 (1.1-1.5); ALKALINE PHOSPHATASE 159 IU/L (46-116); ANION GAP 11 (8-16); ASPARTATE AMINO TRANSFERASE 18 U/L (10-37); BILIRUBIN,TOTAL 0.4 MG/DL (0.1-1.0); BLOOD UREA NITROGEN 24 MG/DL (7-18); BUN/CREATININE RATIO 18.2 (5.4-32.0); CHLORIDE 100 MMOL/L (99-107); CREATININE 1.32 MG/DL (0.60-1.10); GLUCOSE 120 MG/DL (70-104); POTASSIUM 3.8 MMOL/L (3.5-5.1); SODIUM 141 MMOL/L (135-145); eGFR 53 ML/MIN
[2020-02-13 16:30] LABS: CLARITY,URINE CLEAR (Clear); GLUCOSE, URINE NEGATIVE (Neg); KETONES,URINE >=80 mg/dl (Neg); LEUKOCYTE ESTERASE ,URINE NEGATIVE (Neg); NITRITES, URINE NEGATIVE (Neg); OCCULT BLOOD,URINE TRACE-INTACT (Neg); PH,URINE 6.5 (4.8-8.0); PROTEIN,URINE 30 mg/dl (Neg); UROBILINOGEN,URINE 0.2 E.U/dL (0.2-1.0)
[2020-02-13] MEDS ORDERED: furosemide 10 MG/1 ML 10ml inj IV ONE (16:40)
[2020-02-13 16:47] LABS: COLOR,URINE DARK YELLOW (Yellow); UA COLLECTION TYPE NON-SPECIFIED
[2020-02-13 16:48] LABS: BACTERIA,URINE NONE SEEN /HPF (Neg); RBC,URINE 0-2 /HPF (0-2); SQUAMOUS EPITHELIAL CELL,UR FEW /LPF (FEW); WBC,URINE 0-4 /HPF (0-4)
[2020-02-13] MEDS ORDERED: METF-438 PO (17:23)
[2020-02-13] MEDS ORDERED: BRIN8DRO LEFTEYE (17:24)
[2020-02-13] MEDS ORDERED: docusate sod 100mg capsule PO PRN (17:45)
[2020-02-13] MEDS ORDERED: benzonatate 100mg capsule PO PRN (17:45)
[2020-02-13] MEDS ORDERED: magnesium 2GM in 50ml NS 50 ML IV PRN (17:50)
[2020-02-13] MEDS ORDERED: acetaminophen 325mg tablet PO PRN (17:50)
[2020-02-13] MEDS ORDERED: magnesium 4gm in 100ml NS 100 ML IV PRN (17:50)
[2020-02-13] MEDS ORDERED: ondansetron/PF 4mg/2ml inj IV PRN (17:50)
[2020-02-13] MEDS ORDERED: potassium CL 10mEq/100ml bag 100 ML IV PRN ×2 (17:50)
[2020-02-13] MEDS ORDERED: potassium Cl 20 mEq SR tablet PO PRN ×2 (17:50)
[2020-02-13] MEDS ORDERED: magnesium Cl slow-release 64mg tablet PO PRN (17:50)
[2020-02-13] MEDS: levoFLOXACIN-Levaquin 500mg/D5 100 ML IV SCH (19:09)
[2020-02-13] MEDS: tamsulosin 0.4mg capsule PO SCH (19:27)
[2020-02-13] MEDS: megestrol acetate 400mg/10ml UD oral suspension PO SCH (19:42)
[2020-02-13] MEDS: latanoprost 0.005% 2.5ml ophthalmic drops EACHEYE SCH (19:42)
[2020-02-13] MEDS: furosemide 40mg/4ml inj IV SCH (19:45)
[2020-02-13] MEDS: pantoprazole 40mg Tablet.DR PO SCH (19:45)
[2020-02-13] MEDS: methylPREDNISolone sod succ/PF 40mg inj. IV SCH (19:45)
[2020-02-13] MEDS: cyclopentolate 1% 2ml ophthalmic solution EACHEYE SCH (19:55)
[2020-02-13] MEDS: BRINZOLAMIDE LEFTEYE SCH (19:55)
[2020-02-13] MEDS: BRIMONID TART LEFTEYE SCH (19:55)
--- NOTE | 2020-02-13 19:56 | NUR ---
pt negative for covid. pt doesn't have his simrimza eye drops. he states he doesn't have anyone to pick it up for him from home. pt states he lives alone. no family or friends availabe to help.
[2020-02-13] MEDS: K and/or MAG REPLACEMENT MC SCH (20:00)
--- NOTE | 2020-02-13 20:07 | NUR ---
Patient in room ED 3. I have received report from Gloria SCHNEIDER and had the opportunity to ask questions and awaiting arrival of patient to the PCU unit.
--- NOTE | 2020-02-13 20:10 | NUR ---
Patient arrived to PCU from the ED at this time. He is somewhat confused. He knows who he is and sometimes will answer appropriately but other times will make random statements that are unrelated and do not make sense. He is somewhat anxious about being here. He was able to transfer from the gurney to the bed with standby assistance. Vitals are stable. He denies any pain. He is on 3 liters oxygen nasal cannula and sating WNL. He usually wears 2-3 liters home O2. He is oriented to his room and surroundings. All safety precautions in place. Will continue to monitor.
[2020-02-13 20:30] VITALS: BP 143/79
[2020-02-13] MEDS: prednisoLONE acetate 1% ophth susp 5ml LEFTEYE SCH (20:39)
[2020-02-13] MEDS: heparin, porcine 5000 units/ml vial SQ SCH (20:40)
[2020-02-13] MEDS: Melatonin 3mg tablet PO SCH (20:40)
[2020-02-13 21:30] VITALS: BP 143/79
[2020-02-13 22:00] VITALS: BP 133/74
--- NOTE | 2020-02-13 23:06 | NUR ---
Patient found wandering to the bathroom and he appeared to be a little unstable on his feet. He was assisted back into bed after using the bathroom. He is fairly confused and when asked if he knows where he is he said he has no idea. He continues to make random statements that do not make any sense. Attempted to reorient patient. Tabs alarm was placed on patient at this time. Bed is in the low, locked position, side rails up x2, call light in reach, non-skid socks placed on patient. Will continue to round frequently. He is re-educated on the importance of asking for assistance before attempting to get up.
[2020-02-14] VITALS (7 sets, daily range): BP systolic 88–141; BP diastolic 55–95
--- NOTE | 2020-02-14 03:10 | NUR ---
PAGER ID: [phone] MESSAGE: Patient Gerry Hays Rm [id number] Positive blood cultures for gram negative rods. Catia SCHNEIDER ext. [phone]
--- NOTE | 2020-02-14 05:34 | NUR ---
PAGER ID: [phone] MESSAGE: Patient Gerry Hays Rm [id number] Patient had second set up positive blood cultures with gram negative rods in the aerobic bottle. Catia SCHNIEDER ext. [phone]
[2020-02-14 05:44] LABS: BASOPHILS % (AUTO) 0.4 % (0-1); EOSINOPHILS % (AUTO) 0.1 % (0-6); HEMATOCRIT 34.8 % (42.0-52.0); HEMOGLOBIN 11.2 g/dl (14.0-17.9); LYMPHOCYTES # (AUTO) 0.4 X10'3 (1.1-4.8); LYMPHOCYTES % (AUTO) 11.1 % (21-51); MEAN CORPUSCULAR HEMOGLOBIN 26.4 PG (27.0-31.0); MEAN CORPUSCULAR HGB CONC 32.2 g/dL (33.0-36.5); MEAN CORPUSCULAR VOLUME 81.9 FL (78-98); MEAN PLATELET VOLUME 8.1 FL (7.4-10.4); MONOCYTES # (AUTO) 0.1 X10'3 (0-0.9); NEUTROPHILS # (AUTO) 3.2 X10'3 (1.8-7.7); NEUTROPHILS % (AUTO) 86.4 % (42-75); PLATELET COUNT 275 X10'3 (140-440); RED BLOOD COUNT 4.25 X10'6 (4.70-6.10); WHITE BLOOD COUNT 3.7 X10'3 (4.5-11.0)
[2020-02-14 06:03] LABS: ALBUMIN 3.5 G/DL (3.4-5.0); ANION GAP 11 (8-16); BLOOD UREA NITROGEN 31 MG/DL (7-18); CALCIUM 9.7 MG/DL (8.5-10.1); CHLORIDE 101 MMOL/L (99-107); CREATININE 1.41 MG/DL (0.60-1.10); GLUCOSE 139 MG/DL (70-104); MAGNESIUM 1.6 MG/DL (1.5-2.4); POTASSIUM 4.4 MMOL/L (3.5-5.1); SODIUM 142 MMOL/L (135-145); TOTAL CARBON DIOXIDE 30.1 MMOL/L (24-32); eGFR 49 ML/MIN
--- NOTE | 2020-02-14 06:18 | NUR ---
Problems reprioritized. Patient report given, questions answered & plan of care reviewed with Madhavi SCHNEIDER.
--- NOTE | 2020-02-14 06:24 | NUR ---
Patient in room PCU 3014. I have received report from Catia SCHNEIDER and had the opportunity to ask questions and assume patient care.
--- NOTE | 2020-02-14 06:34 | NUR ---
Patient in room PCU 3014. I have received report from Catia and had the opportunity to ask questions and assume patient care.
[2020-02-14] MEDS: furosemide 40mg/4ml inj IV SCH ×2 (07:11→20:30)
[2020-02-14] MEDS: prednisoLONE acetate 1% ophth susp 5ml LEFTEYE SCH ×2 (07:11→20:42)
[2020-02-14] MEDS: heparin, porcine 5000 units/ml vial SQ SCH ×2 (07:12→20:37)
[2020-02-14] MEDS: diltiazem CD 180mg cap (once-daily) PO SCH (07:13)
[2020-02-14] MEDS: cyanocobalamin 500mcg tablet PO SCH (07:13)
[2020-02-14] MEDS: pantoprazole 40mg Tablet.DR PO SCH (07:13)
[2020-02-14] MEDS: ALPRAZolam 0.5mg tablet PO PRN ×2 (07:13→15:14)
[2020-02-14] MEDS: cyclopentolate 1% 2ml ophthalmic solution EACHEYE SCH ×2 (07:14→20:35)
[2020-02-14] MEDS: atorvastatin 20mg tablet PO SCH (07:14)
[2020-02-14] MEDS: latanoprost 0.005% 2.5ml ophthalmic drops EACHEYE SCH (07:15)
[2020-02-14] MEDS: levoFLOXACIN-Levaquin 500mg/D5 100 ML IV SCH (07:16)
[2020-02-14] MEDS: megestrol acetate 400mg/10ml UD oral suspension PO SCH (07:16)
[2020-02-14] MEDS: methylPREDNISolone sod succ/PF 40mg inj. IV SCH ×2 (07:18→20:35)
[2020-02-14] MEDS: tamsulosin 0.4mg capsule PO SCH (07:35)
[2020-02-14] MEDS: K and/or MAG REPLACEMENT MC SCH ×2 (08:00→20:00)
[2020-02-14] MEDS: BRINZOLAMIDE LEFTEYE SCH ×2 (08:00→20:00)
[2020-02-14] MEDS: BRIMONID TART LEFTEYE SCH ×2 (08:00→20:00)
--- NOTE | 2020-02-14 10:01 | NUR ---
Spoke to patients brother, Sanjay, and updated him on the patients plan of care.
--- NOTE | 2020-02-14 10:16 | NUR ---
Paged PAGER ID: [phone] MESSAGE: Madhavi MEDINA. Antonio Kim [id number]. Pt received Zofran 3 hrs ago and still experiencing nausea/indigestion. Can we place an order for any additional medication? Thank you
[2020-02-14] MEDS ORDERED: levoFLOXACIN 500mg tablet PO SCH (11:00)
--- NOTE | 2020-02-14 14:58 | NUR ---
Spoke to patients friend, Jessica Lang, and updated her on the patients plan of care. States she would prefer the patient to go to a rehab when he is discharged. Will continue to monitor the patient closely.
--- NOTE | 2020-02-14 15:40 | NUR ---
Spoke to patients brother, the brother stated that the patient had a PET scan of his whole body a couple days ago and that he will bring the results to the hospital tomorrow morning. Will continue to monitor the patient closely.
--- NOTE | 2020-02-14 16:18 | NUR ---
Sent a page to Dr Aicha velasquez PAGER ID: [phone] MESSAGE: Madhavi SCHNEIDER [phone] [id number] [address], patient states he uses albuterol breathing treatments at home, is asking for a prn breathing treatment, thanks!
[2020-02-14] MEDS: lactose-reduced food (Ensure Enlive) - 237ml bottle PO SCH (17:45)
--- NOTE | 2020-02-14 17:59 | NUR ---
Malnutrition/DM consult. patient has A1c of 5.9, DM education not indicated at this time. Current weight is 65 kg on chair scale. Had one meal so far with 0-25% PO intake. Weight last May 2019 80 kg on bedscale. November 2019 had patient stated weight of 75 kg. Using bedscale weight from last May pt lost 15 kg (19%) of body weight in 9 months. Pt presents to ED with weakness and SOB, history of COPD. Visited pat at bedside, appears very thin with visible fat and muscle wasting, occipital fat loss. Patient is confused, however was able to verbalize that he has had a significant amount of weight loss and expressed frustration over that. Reports that when he swallows it feels like food get stuck in this throat, recommend BSS to assess. Reported that he used to weight 214 lbs more than a year ago and states he is now 114 lbs, which may be due to his confusion as he currently weighs 143 lbs and previous weights are up to 176. Despite reporting the wt out of confusion pt still has had significant wt loss. Patient's ht is 72 inches in previous admissions. Spoke with bedside nurse regarding above. She stated that pt told her he eats three bites then is done. Recommend Ensure Enlive with meals as pt reports he would drink at home in view of malnutrition. Did not provide written education for malnutrition today as he is confused. pt takes megace for appetite. Poor intake may be r/t difficulty breathing as well. Will continue to follow. Recommend: 1. continue heart healthy diet 2. continue ensure enlive 3. continue appetite stimulant 4. bowel care as needed 5. wt per rx 6. when confusion clears needs written malnutrition supplement education Addendum: 02/14/20 at [address] Amended: Links added.
--- NOTE | 2020-02-14 18:26 | NUR ---
Problems reprioritized. Patient report given, questions answered & plan of care reviewed with Patricia SCHNEIDER.
[2020-02-14] MEDS: Melatonin 3mg tablet PO SCH (20:35)
[2020-02-15 03:00] VITALS: BP 104/61
[2020-02-15 05:28] LABS: BASOPHILS % (AUTO) 0.1 % (0-1); EOSINOPHILS % (AUTO) 0 % (0-6); HEMATOCRIT 33.8 % (42.0-52.0); HEMOGLOBIN 10.9 g/dl (14.0-17.9); LYMPHOCYTES # (AUTO) 0.8 X10'3 (1.1-4.8); LYMPHOCYTES % (AUTO) 7.4 % (21-51); MEAN CORPUSCULAR HEMOGLOBIN 26.4 PG (27.0-31.0); MEAN CORPUSCULAR HGB CONC 32.3 g/dL (33.0-36.5); MEAN CORPUSCULAR VOLUME 81.6 FL (78-98); MEAN PLATELET VOLUME 8.5 FL (7.4-10.4); MONOCYTES # (AUTO) 0.4 X10'3 (0-0.9); MONOCYTES % (AUTO) 3.4 % (2-12); NEUTROPHILS # (AUTO) 9.9 X10'3 (1.8-7.7); NEUTROPHILS % (AUTO) 89.1 % (42-75); PLATELET COUNT 356 X10'3 (140-440); RED BLOOD COUNT 4.15 X10'6 (4.70-6.10); RED CELL DISTRIBUTION WIDTH 17.5 % (11.5-14.5); WHITE BLOOD COUNT 11.1 X10'3 (4.5-11.0)
[2020-02-15 05:51] LABS: ALBUMIN 3.7 G/DL (3.4-5.0); ANION GAP 11 (8-16); BLOOD UREA NITROGEN 46 MG/DL (7-18); BUN/CREATININE RATIO 23.1 (5.4-32.0); CALCIUM 9.4 MG/DL (8.5-10.1); CHLORIDE 98 MMOL/L (99-107); CREATININE 1.99 MG/DL (0.60-1.10); GLUCOSE 136 MG/DL (70-104); MAGNESIUM 1.6 MG/DL (1.5-2.4); POTASSIUM 3.9 MMOL/L (3.5-5.1); SODIUM 140 MMOL/L (135-145); TOTAL CARBON DIOXIDE 30.7 MMOL/L (24-32); eGFR 33 ML/MIN
[2020-02-15 06:00] VITALS: BP 108/64
--- NOTE | 2020-02-15 06:37 | NUR ---
REPORT GIVEN TO JENNIE BAXTER.
--- NOTE | 2020-02-15 06:40 | NUR ---
Patient in room PCU 3014. I have received report from JENNIE Gomez and had the opportunity to ask questions and assume patient care.
[2020-02-15] MEDS: atorvastatin 20mg tablet PO SCH (07:55)
[2020-02-15] MEDS: tamsulosin 0.4mg capsule PO SCH (07:55)
[2020-02-15] MEDS: diltiazem CD 180mg cap (once-daily) PO SCH (07:56)
[2020-02-15] MEDS: pantoprazole 40mg Tablet.DR PO SCH (07:56)
[2020-02-15] MEDS: cyanocobalamin 500mcg tablet PO SCH (07:56)
[2020-02-15] MEDS: heparin, porcine 5000 units/ml vial SQ SCH ×2 (07:59→22:40)
[2020-02-15] MEDS: BRINZOLAMIDE LEFTEYE SCH ×2 (08:00→20:00)
[2020-02-15] MEDS: megestrol acetate 400mg/10ml UD oral suspension PO SCH (08:00)
[2020-02-15] MEDS: BRIMONID TART LEFTEYE SCH ×2 (08:00→20:00)
[2020-02-15] MEDS: lactose-reduced food (Ensure Enlive) - 237ml bottle PO SCH ×3 (08:00→18:00)
[2020-02-15] MEDS: furosemide 40mg/4ml inj IV SCH (08:14)
[2020-02-15] MEDS: cyclopentolate 1% 2ml ophthalmic solution EACHEYE SCH ×2 (08:16→20:00)
[2020-02-15] MEDS: latanoprost 0.005% 2.5ml ophthalmic drops EACHEYE SCH (08:16)
[2020-02-15] MEDS: prednisoLONE acetate 1% ophth susp 5ml LEFTEYE SCH ×2 (08:16→22:40)
[2020-02-15] MEDS: methylPREDNISolone sod succ/PF 40mg inj. IV SCH (08:17)
[2020-02-15] MEDS: K and/or MAG REPLACEMENT MC SCH ×2 (08:18→19:24)
--- NOTE | 2020-02-15 09:00 | NUR ---
Verified with Dr. Ferreira that he does not want a CBC drawn today.
[2020-02-15 11:00] VITALS: BP 133/52
[2020-02-15] MEDS: levoFLOXACIN 250mg tablet PO SCH (12:45)
[2020-02-15] MEDS: ALPRAZolam 0.5mg tablet PO PRN (12:45)
--- NOTE | 2020-02-15 14:00 | NUR ---
Problems reprioritized. Patient report given, questions answered & plan of care reviewed with JENNIE Diamond.
--- NOTE | 2020-02-15 14:00 | NUR ---
Patient in room PCU 3023. I have received report from Raegan SCHNEIDER and had the opportunity to ask questions and assume patient care.
--- NOTE | 2020-02-15 14:57 | NUR ---
Assumed care of patient, called patients brother Rafi to inquire about patients baseline. Rafi stated his brother has been confused for about 3-4 months. Patient lives alone and he is concerned for his safety going back home. Patient also verified that Gerry has been wearing oxygen for 15 years. Will continue to communicate as needed.
[2020-02-15 15:00] VITALS: BP 104/52
[2020-02-15 18:00] VITALS: BP 102/59
--- NOTE | 2020-02-15 18:27 | NUR ---
Problems reprioritized. Patient report given, questions answered & plan of care reviewed with Rimma SCHNEIDER. Patient was watching t.v. in no apparent distress.
--- NOTE | 2020-02-15 18:39 | NUR ---
order entry specialist error for above note
--- NOTE | 2020-02-15 18:59 | NUR ---
Patient in room PCU 3023. I have received report from JENNIE Diamond and had the opportunity to ask questions and assume patient care.
[2020-02-15 22:00] VITALS: BP 120/58
[2020-02-15] MEDS: lactobacillus rhamnosus 10,000 MMU CELLS/CAPSULE PO SCH (22:39)
[2020-02-15] MEDS: Melatonin 3mg tablet PO SCH (22:40)
[2020-02-16] VITALS (7 sets, daily range): BP systolic 76–124; BP diastolic 41–61
[2020-02-16] MEDS: ALPRAZolam 0.5mg tablet PO PRN (01:35)
--- NOTE | 2020-02-16 06:10 | NUR ---
Patient in room PCU 3023. I have received report from Rimma SCHNEIDER and had the opportunity to ask questions and assume patient care.
--- NOTE | 2020-02-16 06:18 | NUR ---
Problems reprioritized. Patient report given, questions answered & plan of care reviewed with JENNIE Manuel.
[2020-02-16 06:56] LABS: BASOPHILS % (AUTO) 0.1 % (0-1); EOSINOPHILS % (AUTO) 0 % (0-6); HEMATOCRIT 33.5 % (42.0-52.0); LYMPHOCYTES # (AUTO) 1.2 X10'3 (1.1-4.8); LYMPHOCYTES % (AUTO) 10.9 % (21-51); MEAN CORPUSCULAR HEMOGLOBIN 26.7 PG (27.0-31.0); MEAN CORPUSCULAR HGB CONC 32.8 g/dL (33.0-36.5); MEAN CORPUSCULAR VOLUME 81.4 FL (78-98); MEAN PLATELET VOLUME 8.6 FL (7.4-10.4); MONOCYTES # (AUTO) 1.1 X10'3 (0-0.9); MONOCYTES % (AUTO) 9.7 % (2-12); NEUTROPHILS # (AUTO) 8.8 X10'3 (1.8-7.7); NEUTROPHILS % (AUTO) 79.3 % (42-75); PLATELET COUNT 311 X10'3 (140-440); RED BLOOD COUNT 4.12 X10'6 (4.70-6.10); RED CELL DISTRIBUTION WIDTH 17.8 % (11.5-14.5); WHITE BLOOD COUNT 11.1 X10'3 (4.5-11.0)
[2020-02-16 06:59] LABS: ALBUMIN 3.5 G/DL (3.4-5.0); ANION GAP 6 (8-16); BLOOD UREA NITROGEN 65 MG/DL (7-18); BUN/CREATININE RATIO 31.9 (5.4-32.0); CALCIUM 9.1 MG/DL (8.5-10.1); CHLORIDE 100 MMOL/L (99-107); CREATININE 2.04 MG/DL (0.60-1.10); GLUCOSE 111 MG/DL (70-104); MAGNESIUM 1.8 MG/DL (1.5-2.4); SODIUM 139 MMOL/L (135-145); TOTAL CARBON DIOXIDE 33.4 MMOL/L (24-32); eGFR 32 ML/MIN
[2020-02-16 07:03] LABS: POTASSIUM 3.8 MMOL/L (3.5-5.1)
[2020-02-16] MEDS: latanoprost 0.005% 2.5ml ophthalmic drops EACHEYE SCH (07:43)
[2020-02-16] MEDS: atorvastatin 20mg tablet PO SCH (07:45)
[2020-02-16] MEDS: diltiazem CD 180mg cap (once-daily) PO SCH (07:46)
[2020-02-16] MEDS: cyanocobalamin 500mcg tablet PO SCH (07:46)
[2020-02-16] MEDS: lactobacillus rhamnosus 10,000 MMU CELLS/CAPSULE PO SCH ×2 (07:47→20:02)
[2020-02-16] MEDS: pantoprazole 40mg Tablet.DR PO SCH (07:47)
[2020-02-16] MEDS: tamsulosin 0.4mg capsule PO SCH (07:48)
[2020-02-16] MEDS: predniSONE 20 mg tablet PO SCH (07:49)
[2020-02-16] MEDS: prednisoLONE acetate 1% ophth susp 5ml LEFTEYE SCH ×2 (07:50→20:03)
[2020-02-16] MEDS: megestrol acetate 400mg/10ml UD oral suspension PO SCH (07:51)
[2020-02-16] MEDS: heparin, porcine 5000 units/ml vial SQ SCH ×2 (07:55→20:02)
[2020-02-16] MEDS: cyclopentolate 1% 2ml ophthalmic solution EACHEYE SCH ×2 (07:57→20:03)
[2020-02-16] MEDS: lactose-reduced food (Ensure Enlive) - 237ml bottle PO SCH ×3 (07:58→18:56)
[2020-02-16] MEDS: K and/or MAG REPLACEMENT MC SCH ×2 (08:00→19:51)
[2020-02-16] MEDS: BRIMONID TART LEFTEYE SCH (08:00)
[2020-02-16] MEDS: BRINZOLAMIDE LEFTEYE SCH (08:00)
[2020-02-16] MEDS: levoFLOXACIN 250mg tablet PO SCH (10:55)
[2020-02-16] MEDS: normal saline 1000ml 1,000 ML IV SCH (14:34)
--- NOTE | 2020-02-16 15:23 | NUR ---
PAGER ID: [phone] MESSAGE: Re: Gerry Hays, Room: 3023B. Pt's last BP's have been 84/44 and 91/43. Pt not symptomatic, alert and oriented. Pt complaining of back pain, can we get order for Tylenol? -Kaleb [facility] #[id number] Dr. Holcomb paged concerning Pt's BP's
[2020-02-16] MEDS: acetaminophen 325mg tablet PO PRN (16:15)
--- NOTE | 2020-02-16 18:15 | NUR ---
Patient in room PCU 3023. I have received report from Kaleb SCHNEIDER and had the opportunity to ask questions and assume patient care.
--- NOTE | 2020-02-16 18:20 | NUR ---
Problems reprioritized. Patient report given, questions answered & plan of care reviewed with Tyra SCHNEIDER.
[2020-02-16] MEDS: Melatonin 3mg tablet PO SCH (21:29)
[2020-02-17 02:00] VITALS: BP 119/53
--- NOTE | 2020-02-17 05:57 | NUR ---
Problems reprioritized. Patient report given, questions answered & plan of care reviewed with Kaleb SCHNEIDER.
[2020-02-17 06:00] VITALS: BP 113/61
--- NOTE | 2020-02-17 06:05 | NUR ---
Patient in room PCU 3023. I have received report from Tyra SCHNEIDER and had the opportunity to ask questions and assume patient care.
[2020-02-17 06:26] LABS: BASOPHILS % (AUTO) 0.1 % (0-1); EOSINOPHILS % (AUTO) 0.1 % (0-6); HEMATOCRIT 30.9 % (42.0-52.0); HEMOGLOBIN 10.3 g/dl (14.0-17.9); LYMPHOCYTES # (AUTO) 1.4 X10'3 (1.1-4.8); LYMPHOCYTES % (AUTO) 12.6 % (21-51); MEAN CORPUSCULAR HEMOGLOBIN 26.8 PG (27.0-31.0); MEAN CORPUSCULAR HGB CONC 33.2 g/dL (33.0-36.5); MEAN CORPUSCULAR VOLUME 80.8 FL (78-98); MEAN PLATELET VOLUME 8.6 FL (7.4-10.4); MONOCYTES # (AUTO) 0.9 X10'3 (0-0.9); MONOCYTES % (AUTO) 8.1 % (2-12); NEUTROPHILS # (AUTO) 8.6 X10'3 (1.8-7.7); NEUTROPHILS % (AUTO) 79.1 % (42-75); PLATELET COUNT 286 X10'3 (140-440); RED BLOOD COUNT 3.83 X10'6 (4.70-6.10); RED CELL DISTRIBUTION WIDTH 17.9 % (11.5-14.5); WHITE BLOOD COUNT 10.8 X10'3 (4.5-11.0)
[2020-02-17 06:45] LABS: ALBUMIN 3.3 G/DL (3.4-5.0); ANION GAP 11 (8-16); BLOOD UREA NITROGEN 73 MG/DL (7-18); BUN/CREATININE RATIO 37.8 (5.4-32.0); CALCIUM 8.6 MG/DL (8.5-10.1); CHLORIDE 101 MMOL/L (99-107); CREATININE 1.93 MG/DL (0.60-1.10); GLUCOSE 108 MG/DL (70-104); MAGNESIUM 1.8 MG/DL (1.5-2.4); POTASSIUM 3.3 MMOL/L (3.5-5.1); SODIUM 142 MMOL/L (135-145); TOTAL CARBON DIOXIDE 30.4 MMOL/L (24-32); eGFR 34 ML/MIN
[2020-02-17] MEDS ORDERED: magnesium 4gm in 100ml NS 100 ML IV PRN (07:15)
[2020-02-17] MEDS ORDERED: potassium CL 10mEq/100ml bag 100 ML IV PRN (07:15)
[2020-02-17] MEDS ORDERED: potassium Cl 20 mEq SR tablet PO PRN (07:15)
[2020-02-17] MEDS ORDERED: magnesium Cl slow-release 64mg tablet PO PRN (07:15)
[2020-02-17] MEDS: pantoprazole 40mg Tablet.DR PO SCH (07:27)
[2020-02-17] MEDS: diltiazem CD 180mg cap (once-daily) PO SCH (07:27)
[2020-02-17] MEDS: cyanocobalamin 500mcg tablet PO SCH (07:27)
[2020-02-17] MEDS: tamsulosin 0.4mg capsule PO SCH (07:27)
[2020-02-17] MEDS: lactobacillus rhamnosus 10,000 MMU CELLS/CAPSULE PO SCH ×2 (07:27→19:32)
[2020-02-17] MEDS: predniSONE 20 mg tablet PO SCH (07:29)
[2020-02-17] MEDS: potassium Cl 20 mEq SR tablet PO PRN ×3 (07:29→19:32)
[2020-02-17] MEDS: atorvastatin 20mg tablet PO SCH (07:29)
[2020-02-17] MEDS: megestrol acetate 400mg/10ml UD oral suspension PO SCH (07:29)
[2020-02-17] MEDS: heparin, porcine 5000 units/ml vial SQ SCH ×2 (07:30→19:33)
[2020-02-17] MEDS: cyclopentolate 1% 2ml ophthalmic solution EACHEYE SCH ×2 (07:30→19:33)
[2020-02-17] MEDS: latanoprost 0.005% 2.5ml ophthalmic drops EACHEYE SCH (07:31)
[2020-02-17] MEDS: prednisoLONE acetate 1% ophth susp 5ml LEFTEYE SCH ×2 (07:37→19:33)
[2020-02-17] MEDS: K and/or MAG REPLACEMENT MC SCH ×2 (08:00→19:33)
[2020-02-17] MEDS: lactose-reduced food (Ensure Enlive) - 237ml bottle PO SCH ×3 (08:00→18:55)
[2020-02-17] MEDS ORDERED: furosemide 40mg/4ml inj IV SCH (09:10)
[2020-02-17] MEDS: normal saline 1000ml 1,000 ML IV SCH (10:12)
[2020-02-17] MEDS: levoFLOXACIN 250mg tablet PO SCH (10:14)
[2020-02-17 11:00] VITALS: BP 91/48
[2020-02-17] MEDS: acetaminophen 325mg tablet PO PRN (14:22)
[2020-02-17 15:00] VITALS: BP 102/55
[2020-02-17] MEDS: ALPRAZolam 0.5mg tablet PO PRN (16:22)
[2020-02-17 18:00] VITALS: BP 95/53
--- NOTE | 2020-02-17 18:00 | NUR ---
Student documentation: I have reviewed and agree with all interventions, assessments performed and documented by Ellie SCHNEIDER.
--- NOTE | 2020-02-17 18:25 | NUR ---
Problems reprioritized. Patient report given, questions answered & plan of care reviewed with Azra SCHNEIDER.
--- NOTE | 2020-02-17 18:30 | NUR ---
Patient in room PCU 3023. I have received report from Kaleb SCHNEIDER and had the opportunity to ask questions and assume patient care.
[2020-02-17] MEDS: Melatonin 3mg tablet PO SCH (21:06)
[2020-02-17 22:00] VITALS: BP 110/62
[2020-02-18 02:00] VITALS: BP 115/54
[2020-02-18 06:00] VITALS: BP 122/67
--- NOTE | 2020-02-18 06:15 | NUR ---
RECEIVED REPORT FROM JENNIE SALGADO
[2020-02-18 06:21] LABS: BASOPHILS % (AUTO) 0.1 % (0-1); EOSINOPHILS % (AUTO) 0.4 % (0-6); HEMATOCRIT 34.1 % (42.0-52.0); LYMPHOCYTES # (AUTO) 1.9 X10'3 (1.1-4.8); LYMPHOCYTES % (AUTO) 16.1 % (21-51); MEAN CORPUSCULAR HEMOGLOBIN 26.5 PG (27.0-31.0); MEAN CORPUSCULAR HGB CONC 32.2 g/dL (33.0-36.5); MEAN CORPUSCULAR VOLUME 82.1 FL (78-98); NEUTROPHILS % (AUTO) 75.4 % (42-75); PLATELET COUNT 354 X10'3 (140-440); RED BLOOD COUNT 4.16 X10'6 (4.70-6.10); RED CELL DISTRIBUTION WIDTH 18.1 % (11.5-14.5); WHITE BLOOD COUNT 11.9 X10'3 (4.5-11.0)
[2020-02-18] MEDS: acetaminophen 325mg tablet PO PRN (06:22)
--- NOTE | 2020-02-18 06:24 | NUR ---
Problems reprioritized. Patient report given, questions answered & plan of care reviewed with Nayana SCHNEIDER.
[2020-02-18 06:26] LABS: ALBUMIN 3.4 G/DL (3.4-5.0); ANION GAP 7 (8-16); BLOOD UREA NITROGEN 57 MG/DL (7-18); BUN/CREATININE RATIO 36.8 (5.4-32.0); CALCIUM 9.1 MG/DL (8.5-10.1); CHLORIDE 104 MMOL/L (99-107); CREATININE 1.55 MG/DL (0.60-1.10); GLUCOSE 105 MG/DL (70-104); POTASSIUM 3.6 MMOL/L (3.5-5.1); SODIUM 143 MMOL/L (135-145); TOTAL CARBON DIOXIDE 32.2 MMOL/L (24-32); eGFR 44 ML/MIN
[2020-02-18] MEDS: lactose-reduced food (Ensure Enlive) - 237ml bottle PO SCH ×2 (07:58→12:37)
[2020-02-18] MEDS: megestrol acetate 400mg/10ml UD oral suspension PO SCH (08:00)
[2020-02-18] MEDS: K and/or MAG REPLACEMENT MC SCH (08:00)
[2020-02-18] MEDS ORDERED: furosemide 20 MG/2 ML vial IV SCH (08:00)
[2020-02-18] MEDS: cyclopentolate 1% 2ml ophthalmic solution EACHEYE SCH (08:00)
[2020-02-18] MEDS: cyanocobalamin 500mcg tablet PO SCH (08:07)
[2020-02-18] MEDS: lactobacillus rhamnosus 10,000 MMU CELLS/CAPSULE PO SCH (08:07)
[2020-02-18] MEDS: diltiazem CD 180mg cap (once-daily) PO SCH (08:07)
[2020-02-18] MEDS: tamsulosin 0.4mg capsule PO SCH (08:07)
[2020-02-18] MEDS: predniSONE 20 mg tablet PO SCH (08:08)
[2020-02-18] MEDS: pantoprazole 40mg Tablet.DR PO SCH (08:08)
[2020-02-18] MEDS: atorvastatin 20mg tablet PO SCH (08:08)
[2020-02-18] MEDS: heparin, porcine 5000 units/ml vial SQ SCH (08:09)
[2020-02-18] MEDS: latanoprost 0.005% 2.5ml ophthalmic drops EACHEYE SCH (08:15)
[2020-02-18] MEDS: prednisoLONE acetate 1% ophth susp 5ml LEFTEYE SCH (08:16)
[2020-02-18] MEDS ORDERED: albuterol 2.5 MG/3 ML nebule NEB PRN (09:15)
[2020-02-18 11:00] VITALS: BP 134/71
[2020-02-18] MEDS: levoFLOXACIN 250mg tablet PO SCH (11:12)
--- NOTE | 2020-02-18 14:27 | NUR ---
gave report to jaleesa almeida at [facility]
--- NOTE | 2020-02-18 15:22 | NUR ---
pt d/c with all belongings, to [facility] accompanied by janelle philip
[2020-02-18] MEDS ORDERED: ALPRAZolam 0.5mg tablet PO PRN (19:00)
== END 2020-02-18 15:30 | DRG 871 ==
LOC: ER 15:31 → ED HOLD 17:47 → PCU 3S 20:10
PROVIDERS: ADMIT Internal Medicine; ATTEND Internal Medicine
DX: A41.59 Other Gram-negative sepsis (principal); J18.9 Pneumonia, unspecified organism; I50.31 Acute diastolic (congestive) heart failure; J96.21 Acute and chronic respiratory failure with hypoxia; J44.1 Chronic obstructive pulmonary disease with (acute) exacerbation; I13.0 Hypertensive heart and chronic kidney disease with heart failure and stage 1 through stage 4 chronic kidney disease, or unspecified chronic kidney disease; J44.0 Chronic obstructive pulmonary disease with (acute) lower respiratory infection; N17.9 Acute kidney failure, unspecified; E11.22 Type 2 diabetes mellitus with diabetic chronic kidney disease; N18.3 Chronic kidney disease, stage 3 (moderate); B96.1 Klebsiella pneumoniae [K. pneumoniae] as the cause of diseases classified elsewhere; F41.9 Anxiety disorder, unspecified; K21.9 Gastro-esophageal reflux disease without esophagitis; E78.5 Hyperlipidemia, unspecified; I25.10 Atherosclerotic heart disease of native coronary artery without angina pectoris; I27.81 Cor pulmonale (chronic); N40.0 Benign prostatic hyperplasia without lower urinary tract symptoms; Z79.899 Other long term (current) drug therapy; Z85.46 Personal history of malignant neoplasm of prostate; Z86.73 Personal history of transient ischemic attack (TIA), and cerebral infarction without residual deficits; Z79.84 Long term (current) use of oral hypoglycemic drugs; Z88.8 Allergy status to other drugs, medicaments and biological substances; Z98.61 Coronary angioplasty status; Z80.1 Family history of malignant neoplasm of trachea, bronchus and lung; Z82.5 Family history of asthma and other chronic lower respiratory diseases; Z99.81 Dependence on supplemental oxygen; Z87.891 Personal history of nicotine dependence
CPT/HCPCS: 36415; 71045; 80048; 80053; 81001; 82948; 83036; 83605; 83735; 83880; 84145; 84484; 85025; 85610; 87040; 87077; 87081; 87186; 87635; 92508; 92616; 93005; 94640; 94760; 97116; 97530; 99285; G0378; J1644; J1940; J1956; J2405; J2920; J2930; J7030; J7512